=== PATIENT | female | born 1955 | race Caucasian/White ===

== ENCOUNTER 2020-04-15 07:09 | Outpatient (CLI) | payer MEDICARE, BC ==
[2020-04-15 12:29] LABS: #Basophils 0.1 10x3/uL (0.0-0.2); #Eosinphils 0.2 10x3/uL (0.0-0.5); #Monocytes 0.4 10x3/uL (0.0-1.1); #Neutrophils 6.8 10x3/uL (1.5-8.4); %Basophils 0.7 % (0.0-2.0); %Eosinophils 1.5 % (0.0-6.0); %Lymphocytes 22.8 % (18.0-47.0); %Monocytes 4.5 % (0.0-10.0); %Neutrophils 70.1 % (40.0-75.0); Hemoglobin 14.2 g/dL (12.0-16.0); Mean Corpuscular HGB CONC 33.6 G/DL (32.0-36.0); Mean Corpuscular Hemoglobin 32.1 PG (27.0-33.0); Mean Corpuscular Volume 95.5 fl (80.0-100.0); Mean Platelet Volume 10.7 fl (7.4-10.4); Platelet Count 325 10x3/uL (130-400); RBC Distribution Width 13.2 % (11.5-14.5); Red Blood Cell (RBC) Count 4.43 10x6/uL (3.90-5.20); White Blood Cell (WBC) Count 9.8 10x3/uL (4.5-11.0)
[2020-04-15 13:19] LABS: Anion Gap 19 mmol/L (10-20); BUN (Urea Nitrogen) 9 mg/dL (9.8-20.1); Calc. Creatinine Clearance 0 mL/min (70-130); Calcium 9.3 mg/dL (7.8-10.44); Carbon Dioxide 24 mmol/L (23-31); Chloride 101 mmol/L (98-107); Estimated GFR-MDRD 60; Glucose 88 mg/dL (80-115); Potassium 4.4 mmol/L (3.5-5.1); Sodium 140 mmol/L (136-145)
[2020-04-16 15:35] LABS: SARS-CoV-2 MS2 Positive; SARS-CoV-2 N Gene Negative; SARS-CoV-2 S Gene Negative; SARS-CoV-2 by NAA Not Detected (NotDetected); SARS-CoV-2 orf1ab Negative
== END 2020-04-15 07:10 | disposition home or self-care (01) ==
LOC: LABBT 07:09
PROVIDERS: ATTEND Orthopaedic Surgery
DX: Z01.818 Encounter for other preprocedural examination (principal); M19.011 Primary osteoarthritis, right shoulder; Z20.828 Contact with and (suspected) exposure to other viral communicable diseases
CPT/HCPCS: 80048; 85025; 93005; U0003; 87635; 93010

== ENCOUNTER 2020-04-15 11:30 | Inpatient (IN) | payer MEDICARE, BC ==
[2020-04-17 10:07] VITALS: BMI 31.8
[2020-04-18] MEDS ORDERED: Vancomycin 1.5 GRAM/300 ML BAG ONE (06:15)
[2020-04-18] MEDS ORDERED: Tranexamic Acid 1,000 MG/10 ML VIAL ONE (06:15)
[2020-04-18] MEDS ORDERED: Sodium Chloride 0.9% 100 ML ONE (06:15)
[2020-04-18] MEDS ORDERED: Lidocaine 2% Jelly 5 ML TUBE ONE (06:26)
[2020-04-18] MEDS ORDERED: Fentanyl 100 MCG/2 ML VIAL ONE ×3 (06:26→10:04)
[2020-04-18] MEDS ORDERED: Midazolam HCl 2 mg/2 ml Vial ONE (06:37)
[2020-04-18] MEDS ORDERED: HYDROcodone/Acetaminophen 10/325 mg Tablet PO PRN ×4 (07:02→08:15)
[2020-04-18] MEDS ORDERED: Loratadine 10 MG TAB PO PRN (07:03)
[2020-04-18] MEDS ORDERED: Albuterol Sulfate HFA (OR ONLY) ONE (08:07)
[2020-04-18] MEDS ORDERED: Fentanyl 100 MCG/2 ML VIAL IV PRN (08:12)
[2020-04-18] MEDS ORDERED: Promethazine HCl 25 MG/ML VIAL IM PRN ×2 (08:15→09:39)
[2020-04-18] MEDS ORDERED: Ropivacaine 0.2% 550 ML 550 ML NERVE BLCK SCH (08:15)
[2020-04-18] MEDS ORDERED: Zolpidem Tartrate 5 MG TAB PO PRN (08:15)
[2020-04-18] MEDS ORDERED: traMADol HCl 50 MG TAB PO PRN ×2 (08:15)
[2020-04-18] MEDS ORDERED: Ondansetron PF 4 MG/2 ML Vial IVP PRN (08:15)
[2020-04-18] MEDS ORDERED: PROPOFOL 200 MG/20 ML VIAL ONE (09:32)
[2020-04-18] MEDS ORDERED: Ondansetron PF 4 MG/2 ML Vial ONE (09:32)
[2020-04-18] MEDS ORDERED: Dexamethasone 20 MG/5 ML VIAL ONE (09:32)
[2020-04-18] MEDS ORDERED: Ropivacaine 0.5% HCl/PF (150 MG/30 ML VIAL) ONE (09:32)
[2020-04-18] MEDS ORDERED: Glycopyrrolate 0.2 MG/ML 5 ML SYRINGE ONE (09:32)
[2020-04-18] MEDS ORDERED: Lidocaine 1% PF 5 ML VIAL ONE (09:32)
[2020-04-18] MEDS ORDERED: Ropivacaine 0.2% HCl/PF (40 MG/20 ML VIAL) ONE (09:32)
[2020-04-18] MEDS ORDERED: ePHEDrine 50 MG/ML VIAL ONE (09:32)
[2020-04-18] MEDS ORDERED: PHENYLEPHRINE-NS 100 MCG/ML 10 ML SYRINGE ONE (09:32)
[2020-04-18] MEDS ORDERED: Rocuronium Bromide 10 MG/ML (10ML VIAL) ONE (09:32)
[2020-04-18] MEDS ORDERED: Promethazine HCl 25 MG/ML VIAL SLOW IVP PRN (09:39)
[2020-04-18] MEDS ORDERED: Ondansetron HCl/PF 4 MG/2 ML Vial IVP PRN (09:39)
[2020-04-18] MEDS: Sodium Chloride 0.9% 1,000 ML IV SCH (11:11)
[2020-04-18] MEDS: Hydrochlorothiazide 25 MG TAB PO SCH (11:11)
[2020-04-18] MEDS: Ketorolac Tromethamine 30 MG/ML VIAL IVP SCH ×2 (11:34→17:47)
[2020-04-18] MEDS ORDERED: Ketorolac Tromethamine 30 MG/ML VIAL IVP SCH (12:00)
[2020-04-18] MEDS ORDERED: Mometasone 200 MCG/Formoterol 5 MCG 120 PUFF INHALER INH PRN (13:24)
[2020-04-18] MEDS ORDERED: CEFAZOLIN 2 GM in Premix Bag 1 BAG IVPB SCH (14:00)
[2020-04-18] MEDS: CEFAZOLIN 2 GM in Premix Bag 1 BAG IVPB SCH (16:31)
[2020-04-18] MEDS ORDERED: Mometasone 200 MCG/Formoterol 5 MCG 120 PUFF INHALER INH SCH (18:30)
[2020-04-19] MEDS: Ketorolac Tromethamine 30 MG/ML VIAL IVP SCH ×2 (00:12→05:36)
[2020-04-19] MEDS: CEFAZOLIN 2 GM in Premix Bag 1 BAG IVPB SCH (00:12)
[2020-04-19] MEDS: Sodium Chloride 0.9% 1,000 ML IV SCH (04:32)
--- NOTE | 2020-04-19 06:30 | OP ---
DATE OF PROCEDURE: 04/18/2020 PROCEDURE PERFORMED: Right reverse total shoulder arthroplasty and biceps tenodesis using a Beatty Tornier flex B stem with a centered tray and a 36 mm poly B type, glenoid is 25 mm +3 base plate, lateralized with a 30 central screw, 26 anterior, 38 posterior, 30 superior. COURSE INSTRUCTOR: Jd. BLOOD LOSS: Less than 100. SPECIMEN: None. DRAINS: None. COMPLICATION: None. The treasury assistant/co-surgeon was present through the entire procedure and was responsible for providing exposure, tissue retraction and any necessary limb or tissue manipulation required to obtain necessary reduction or hardware placement. The treasury assistant/co-surgeon also provided bleeding control, tissue closure, and suturing in conjunction with the primary surgeon. NARRATIVE REPORT: After appropriate consent was obtained, the patient was taken to the operating room where general anesthesia was induced. The patient was placed in a beach chair position. The right arm was prepped and draped in the usual sterile fashion. Oblique incision was made in the deltopectoral interval. Cephalic vein was identified and preserved. Dissection was carried down to the conjoint tendon which was retracted medially. The subscapularis was taken down. The biceps tendon was in poor condition. It was taken down off the superior glenoid tubercle and tenodesed to the pectoralis tendon. Excess tendon was removed. The shoulder was then easily dislocated. I opened the humerus with a T handle and then cut a 20 mm retroversion superior cut. The subscapularis had been previously tagged. I used a subscapularis to follow this down to the anterior glenoid and a Bankart retractor was placed anteriorly, and drill was placed posteriorly. I drilled a center hole in the glenoid and reamed with a 1-step reamer. Irrigation was performed. The base plate was deployed without difficulty. Screws were inserted in the usual technique with good compression and fixation. Glenosphere was deployed without difficulty and the screw was tightened. Attention was turned back to the humerus which was opened with a T handle, and after using the acetabular reamer, I then also used a metaphyseal reamer. The appropriate size stem was trialed and polyethylene was trialed until the implants were determined as above. I did drill holes through the humerus, and a cottony Dacron suture was placed around the prosthesis through bone to facilitate repair of the subscapularis. Irrigation was performed. Permanent implants were placed. Shoulder was reduced. The subscapularis was repaired back to bone using the cottony Dacron suture. Irrigation performed again. The deltopectoral interval was tacked shut with 0 Vicryl, subcutaneous tissue was closed with 2-0 Vicryl, skin was closed with kel, and sterile dressing was applied. Job ID: [id number]
[2020-04-19] MEDS: Hydrochlorothiazide 25 MG TAB PO SCH (08:34)
[2020-04-19 12:07] VITALS: BP 121/65; TEMP 97.7
--- NOTE | 2020-04-22 13:20 | DIS ---
DATE OF ADMISSION: 04/18/2020 DATE OF DISCHARGE: 04/19/2020 This is John Miles PA-C dictating a report for Nicolas Jimenes MD. PREOPERATIVE DIAGNOSIS: Right shoulder osteoarthritis, degenerative joint disease. POSTOPERATIVE DIAGNOSIS: Right shoulder osteoarthritis, degenerative joint disease. PROCEDURE: Patient underwent a right first reverse total shoulder. HOSPITAL STAY: Unremarkable. Admitted overnight for observation. Patient did well postoperatively. No complications. DISCHARGE CONDITION: Good/stable. DISPOSITION: Home with family. FOLLOW UP: Would be in 10 to 14 days or sooner if there are problems and/or concerns. DISCHARGE MEDICATIONS: Given with usage instructions. Job ID: [id number]
== END 2020-04-19 12:23 | disposition home or self-care (01) | DRG 483 ==
LOC: SURG A 04-18 05:55 → SJJU 04-18 10:43 → EDSTATUS 04-18 11:30
PROVIDERS: ADMIT Orthopaedic Surgery; ATTEND Orthopaedic Surgery
PROC: 0RRJ00Z Replacement of Right Shoulder Joint with Reverse Ball and Socket Synthetic Substitute, Open Approach (ICD-10-PCS; principal; 2020-04-18)
DX: M19.011 Primary osteoarthritis, right shoulder (principal); Z96.653 Presence of artificial knee joint, bilateral; Z90.710 Acquired absence of both cervix and uterus; Z20.828 Contact with and (suspected) exposure to other viral communicable diseases; Z01.818 Encounter for other preprocedural examination
CPT/HCPCS: 80048; 85025; 87635; 94640; A4306; C1713; J0690; J1100; J1885; J2250; J2405; J2704; J2795; J3010; J3370; J3490; J7620; U0003